=== PATIENT | female | born 1995 | race Caucasian/White ===

== ENCOUNTER 2017-07-14 00:43 | Emergency (ER) | payer SELFPAY ==
[2017-07-14 02:08] VITALS: BP 129/95
[2017-07-14 02:45] LABS: Hematocrit 32.5 % (30.3-42.9); Hemoglobin 10.7 gm/dl (10.1-14.3); Mean Corpuscular HGB Conc 33 % (30-34); Mean Corpuscular Volume 73 fl (79-97); Platelet Count 355 K/mm3 (140-440); Red Blood Count 4.47 M/mm3 (3.65-5.03)
[2017-07-14 02:52] LABS: Mean Corpuscular Hemoglobin 24 pg (28-32); Red Cell Distribution Width 20.7 % (13.2-15.2)
[2017-07-14 03:00] LABS: Alanine Aminotransferase 16 units/L (7-56); Albumin 4.2 g/dL (3.9-5); BUN/Creatinine Ratio 20; Blood Urea Nitrogen 12 mg/dL (7-17); Calcium 9.1 mg/dL (8.4-10.2); Hemolysis Index 8; Lipase 31 units/L (13-60)
[2017-07-14 05:20] LABS: Band Neutrophils # (Manual) 0.3 K/mm3; Basophils % (Manual) 0 % (0.0-1.8); Total Cells Counted 100
[2017-07-14 05:21] LABS: Anisocytosis 1+; Hypochromasia 2+; Poikilocytosis 1+
[2017-07-14 06:15] LABS: Bilirubin,Urine NEG (Negative); Color,Urine Yellow (Yellow)
[2017-07-14 06:16] LABS: Amorphous Crystals,Urine 1+; Bacteria,Urine 1+ /HPF (Negative); Blood,Urine NEG (Negative); Nitrite,Urine NEG (Negative); Protein,Urine <15 mg/dL mg/dL (Negative); Urobilinogen,Urine < 2.0 mg/dL (<2.0)
== END 2017-07-14 03:42 | disposition left against medical advice (07) ==
LOC: ED 00:43
DX: R10.9 Unspecified abdominal pain (principal); Z53.21 Procedure and treatment not carried out due to patient leaving prior to being seen by health care provider
CPT/HCPCS: 36415; 80053; 81001; 83690; 84703; 85007; 85025

== ENCOUNTER 2018-01-03 12:38 | Outpatient (CLI) | payer MEDICAID ==
[2018-01-03 13:58] VITALS: BP 109/62
[2018-01-03] MEDS ORDERED: LACTATED RINGERS 500 ML IV ONE (14:03)
[2018-01-03 14:25] LABS: Bilirubin,Urine NEG (Negative); Blood,Urine NEG (Negative); Color,Urine Amber (Yellow); Mucus,Urine 2+ /HPF
--- NOTE | 2018-01-03 16:52 | Ultrasound Report ---
FINAL REPORT PROCEDURE: US OB > = 14 WEEKS FETUS TECHNIQUE: Real-time transabdominal sonography of the uterus, placenta, amniotic fluid, adnexa, and fetus was performed with image documentation. Detailed anatomic examination was performed. Measurements were obtained to determine age/size. M-mode Doppler was used to document heartbeat. CPT 91225 HISTORY: well being COMPARISON: No prior studies are available for comparison. FINDINGS: There is a single living intrauterine gestation currently in the vertex presentation with a heart rate of 152 beats per minute. Subjectively the amount of amniotic fluid appears normal. The placenta is located anterior and is grade 1. No evidence of placenta previa or placenta abruption. Cervix length 3.3 centimeters. Cord insertion is unremarkable. Kidney showed no abnormalities. Urinary bladder showed no abnormality. Three-vessel cord confirmed with visualization of 2 arcuate arteries at the level of the urinary bladder. Four-chamber view of the heart is unremarkable. Lateral ventricles of the brain appear normal. Posterior fossa the brain showed no abnormalities. Cavum septum pellucidum and thalamus are not well visualized. Stomach was visualized. The spine is suboptimally visualized. Facial features were not well demonstrated. Four-chamber view of the heart is unremarkable. MEASUREMENTS: BPD: 4.5 centimeter equal 19 week 4 days HC: 16.8 centimeter equal 19 week 3 days AC: 13.3 centimeter equal 18 weeks 6 days FL: 2.9 centimeter equal 18 week 6 day Estimated weight 265 grams. Average sonographic age by today's measurements 18 week 1 day placing the EDC at 05/29/2018 +/-1.5 weeks The maternal right and left ovaries were visualized and are unremarkable. IMPRESSION: Single living intrauterine gestation visualized currently vertex presentation. Average sonographic age by today's study 19 week 1 day[address] EDC at 05/29/2018 plus or minus 1.5 weeks. weight as above. No abnormalities are identified however the cavum septum pellucidum, thalamus, the spine as well as facial features are not well demonstrated. If clinically indicated follow-up exam could be performed to re-evaluate these areas.
== END 2018-01-03 15:56 | disposition home or self-care (01) ==
LOC: EDSTATUS 13:14 → TRG 13:29
PROVIDERS: ATTEND Obstetrics & Gynecology
DX: O26.892 Other specified pregnancy related conditions, second trimester (principal); R10.30 Lower abdominal pain, unspecified; Z3A.20 20 weeks gestation of pregnancy
CPT/HCPCS: 59025; 76805; 81001; J7120